=== PATIENT | male | born 1970 | race Caucasian/White ===

== ENCOUNTER 2024-09-18 04:52 | Inpatient (IN) | payer OTHER ==
[~2024-09-18] VITALS: Ht 172.7 cm; Wt 79.5 kg
[2024-09-18 05:54] LABS: CARBON DIOXIDE 17 mEq/L (21-32); CHLORIDE 109 mEq/L (98-107); POTASSIUM 3.6 mEq/L (3.5-5.1); SODIUM 139 mEq/L (136-145)
[2024-09-18 05:55] LABS: CALCIUM 8.9 mg/dL (8.7-10.4)
[2024-09-18 05:58] LABS: BASOPHILS % 0.6 % (0.0-2.0); EOSINOPHILS % 1.5 % (0.0-5.0); HEMATOCRIT. 44.2 % (42.0-52.0); HEMOGLOBIN. 15.2 g/dL (14.0-18.0); LYMPHOCYTES % 19.7 % (20.0-50.0); MEAN CORPUSCULAR HEMOGLOBIN 29.7 pg (28.0-32.0); MEAN CORPUSCULAR HGB CONC 34.5 g/dL (31.0-37.0); MEAN PLATELET VOLUME 7.8 fl (7.4-10.4); NEUTROPHILS % 72.2 % (40.0-76.0); PLATELET 192 x1000/uL (130-400); RED BLOOD CELL COUNT 5.14 mill/uL (4.7-6.1); RED CELL DISTRIBUTION WIDTH 15.3 % (11.6-14.6); WHITE BLOOD COUNT 10.4 x1000/uL (4.5-11.0)
[2024-09-18 05:59] LABS: CREATININE 1.7 mg/dL (0.6-1.3)
[2024-09-18 06:00] LABS: ETHANOL BLOOD 147 mg/dL (<10); GLUCOSE 114 mg/dL (70-105); UREA NITROGEN BLOOD 27 mg/dL (9-23)
[2024-09-18 06:04] LABS: TROPONIN I HIGH SENSITIVITY < 4 ng/L (3.0-53)
[2024-09-18 07:37] LABS: *AMPHETAMINES SCREEN URINE NEGATIVE (NEGATIVE); *BARBITURATES SCREEN URINE NEGATIVE (NEGATIVE); *BENZODIAZEPINES SCREEN URINE NEGATIVE (NEGATIVE)
[2024-09-18 07:38] LABS: *COCAINE SCREEN URINE NEGATIVE (NEGATIVE); CANNABINOID URINE SCREEN NEGATIVE (NEGATIVE); ECSTASY MDMA SCREEN URINE NEGATIVE (NEGATIVE); METHADONE URINE SCREEN NEGATIVE (NEGATIVE); OPIATES URINE SCREEN NEGATIVE (NEGATIVE); PHENCYCLIDINE URINE SCREEN NEGATIVE (NEGATIVE)
[2024-09-18] MEDS: DILTIAZEM HCL 30MG TABLET PO ONE (07:59)
[2024-09-18] MEDS: SODIUM CHLORIDE 0.9% 1,000 ML IV ONE (08:03)
[2024-09-18] MEDS: DILTIAZEM HCL 60MG TABLET PO ONE (08:04)
[2024-09-18] MEDS ORDERED: KETOROLAC 15MG/ML VIAL IV PRN (08:45)
[2024-09-18] MEDS ORDERED: GUAIFENESIN 200MG/10ML SUGAR FREE UDC PO PRN (08:45)
[2024-09-18] MEDS ORDERED: ACETAMINOPHEN 325MG TABLET PO PRN ×2 (08:45)
[2024-09-18] MEDS ORDERED: MAGNESIUM/ALUMINUM HYDROXIDE/SIMETHICONE 30ML UDC PO PRN (08:45)
[2024-09-18] MEDS ORDERED: ONDANSETRON HCL 4MG/2ML INJ IV PRN (08:45)
[2024-09-18] MEDS ORDERED: CLONIDINE 0.1MG TABLET PO PRN (08:45)
[2024-09-18] MEDS: LACTATED RINGERS IV ONE (08:45)
[2024-09-18] MEDS ORDERED: IPRATROPIUM/ALBUTEROL 0.5-3(2.5)MG/3ML NEB NEB PRN (08:45)
[2024-09-18] MEDS ORDERED: DOCUSATE SODIUM 100MG CAPSULE PO PRN (08:45)
[2024-09-18] MEDS ORDERED: NITROGLYCERIN 0.4MG TABLET SL SL PRN (08:45)
[2024-09-18] MEDS ORDERED: DILTIAZEM 125MG in DEXTROSE 5% WATER 125ML IV PRN (09:30)
[2024-09-18] MEDS ORDERED: DILTIAZEM HCL 125 MG in DEXT 5% WATER 100 ML IV SCH (09:30)
[2024-09-18] MEDS: APIXABAN 5 MG TABLET PO SCH (10:33)
[2024-09-18] MEDS: ASPIRIN 325MG EC TABLET PO SCH (10:33)
[2024-09-18] MEDS: PANTOPRAZOLE SODIUM 40 MG/VIAL IV SCH (10:33)
[2024-09-18] MEDS: MVI, ADULT NO.1 10 ML, FOLIC ACID 1 MG, THIAMINE HCL 100 MG in SODIUM CHLORIDE 0.9% 1,0... IV SCH (10:34)
[2024-09-18 10:50] LABS: IRON 80 ug/dL (65-175)
[2024-09-18 10:52] LABS: LDL CHOLESTEROL 88 mg/dL (5-100); TRIGLYCERIDE 265 mg/dL (0-150)
[2024-09-18 10:53] LABS: CHOLESTEROL 167 mg/dL (<200); HDL CHOLESTEROL 51 mg/dL (>55)
[2024-09-18 10:54] LABS: TOTAL IRON BINDING CAPACITY 214 ug/dl (250-425)
[2024-09-18 10:55] LABS: T4 FREE 1.07 ng/dL (0.89-1.76)
[2024-09-18 10:56] LABS: THYROID STIMULATING HORMONE 1.09 uIU/mL (0.55-4.78)
[2024-09-18] MEDS: CHLORDIAZEPOXIDE 25MG CAPSULE PO SCH (12:00)
[2024-09-18 12:04] LABS: VITAMIN B12 SERUM 272 pg/mL (211-911)
[2024-09-18 12:05] LABS: FOLIC ACID (FOLATE) SERUM 15.61 ng/mL (>5.38)
[2024-09-18] MEDS ORDERED: LORAZEPAM 2MG/ML INJ IV PRN (13:00)
[2024-09-18 14:00] VITALS: BP 134/80; PULSE 80; RESP 17; TEMP 36.6696; O2SAT 100
[2024-09-18 15:24] VITALS: BP 134/80; PULSE 81; RESP 19; TEMP 36.696
[2024-09-18 16:00] VITALS: BP 155/84; PULSE 74; RESP 20; TEMP 36.83628; O2SAT 99
[2024-09-18 16:41] LABS: CREATINE KINASE MB FRACTION 2.6 ng/mL (0.5-3.6)
[2024-09-18 16:45] LABS: CREATINE KINASE 226 IU/L (46-171)
[2024-09-18 17:03] LABS: TROPONIN I HIGH SENSITIVITY < 4 ng/L (3.0-53)
[2024-09-18 20:00] VITALS: BP 135/83; PULSE 79; RESP 18; TEMP 36.6696; O2SAT 98
[2024-09-18] MEDS ORDERED: ZOLPIDEM TARTRATE 5MG TABLET PO PRN (21:00)
[2024-09-18] MEDS: METOPROLOL TARTRATE 25MG TABLET PO SCH (21:59)
[2024-09-18] MEDS: CHLORDIAZEPOXIDE 10MG CAPSULE PO SCH (22:00)
[2024-09-18 23:18] LABS: CREATINE KINASE MB FRACTION 2.2 ng/mL (0.5-3.6)
[2024-09-18 23:19] LABS: CREATINE KINASE 204 IU/L (46-171)
[2024-09-18 23:45] LABS: TROPONIN I HIGH SENSITIVITY < 4 ng/L (3.0-53)
[2024-09-19] VITALS: BP 133/86; PULSE 58; RESP 18; TEMP 36.89184; O2SAT 98
[2024-09-19 04:00] VITALS: BP 141/54; PULSE 58; RESP 24; TEMP 36.6696; O2SAT 97
[2024-09-19 06:19] LABS: CHLORIDE 108 mEq/L (98-107); SODIUM 139 mEq/L (136-145)
[2024-09-19 06:21] LABS: CALCIUM 9.1 mg/dL (8.7-10.4); CARBON DIOXIDE 25 mEq/L (21-32)
[2024-09-19 06:26] LABS: CREATININE 0.8 mg/dL (0.6-1.3); GLUCOSE 101 mg/dL (70-105)
[2024-09-19 06:27] LABS: UREA NITROGEN BLOOD 14 mg/dL (9-23)
[2024-09-19 06:28] LABS: INR 0.9; PROTHROMBIN TIME 10.4 sec (9.6-11.0)
[2024-09-19 06:28] LABS: ALANINE AMINOTRANSFERASE 16 IU/L (10-49); ASPARTATE AMINOTRANSFERASE 22 IU/L (<34)
[2024-09-19 06:29] LABS: PHOSPHORUS 3.1 mg/dL (2.5-4.9); PROTEIN TOTAL 6.5 g/dL (6.0-8.3)
[2024-09-19 06:31] LABS: BASOPHILS % 0.4 % (0.0-2.0); EOSINOPHILS % 2.5 % (0.0-5.0); HEMATOCRIT. 45.2 % (42.0-52.0); HEMOGLOBIN. 14.4 g/dL (14.0-18.0); LYMPHOCYTES % 13.5 % (20.0-50.0); MEAN CORPUSCULAR HEMOGLOBIN 27.6 pg (28.0-32.0); MEAN CORPUSCULAR HGB CONC 31.9 g/dL (31.0-37.0); MEAN CORPUSCULAR VOLUME 86.7 fL (80.0-94.0); MONOCYTES % 6.2 % (2.0-8.0); NEUTROPHILS % 77.4 % (40.0-76.0); PLATELET 137 x1000/uL (130-400); RED BLOOD CELL COUNT 5.22 mill/uL (4.7-6.1); WHITE BLOOD COUNT 7.3 x1000/uL (4.5-11.0)
[2024-09-19 08:00] VITALS: BP 141/91; PULSE 77; RESP 22; TEMP 36.6696; O2SAT 98
[2024-09-19] MEDS: MULTIVITAMINS,THER W-MINERALS TABLET PO SCH (09:47)
[2024-09-19] MEDS: THIAMINE HCL 100MG TABLET PO SCH (09:47)
[2024-09-19] MEDS: FOLIC ACID 1MG TABLET PO SCH (09:48)
[2024-09-19 12:00] VITALS: BP 139/98; PULSE 69; RESP 11; TEMP 36.83628; O2SAT 98
[2024-09-19] MEDS: CHLORDIAZEPOXIDE 5 MG CAPSULE PO SCH (13:49)
[2024-09-19 16:09] VITALS: BP 132/89; PULSE 80; RESP 21; TEMP 36.72516; O2SAT 98
[2024-09-19 20:00] VITALS: BP 129/85; PULSE 73; RESP 16; TEMP 36.72516; O2SAT 99
[2024-09-20] VITALS: BP 113/77; PULSE 57; RESP 14; TEMP 36.44736; O2SAT 97
[2024-09-20 04:49] VITALS: BP 131/95; PULSE 67; RESP 15; TEMP 36.44736; O2SAT 95
[2024-09-20 07:25] LABS: BASOPHILS % 0.6 % (0.0-2.0); EOSINOPHILS % 3.1 % (0.0-5.0); HEMOGLOBIN. 14.2 g/dL (14.0-18.0); LYMPHOCYTES % 18.4 % (20.0-50.0); MEAN CORPUSCULAR HEMOGLOBIN 27.8 pg (28.0-32.0); MEAN CORPUSCULAR HGB CONC 32.4 g/dL (31.0-37.0); MEAN CORPUSCULAR VOLUME 85.9 fL (80.0-94.0); MONOCYTES % 7.1 % (2.0-8.0); NEUTROPHILS % 70.8 % (40.0-76.0); PLATELET 131 x1000/uL (130-400); RED BLOOD CELL COUNT 5.12 mill/uL (4.7-6.1); RED CELL DISTRIBUTION WIDTH 14.8 % (11.6-14.6); WHITE BLOOD COUNT 4.5 x1000/uL (4.5-11.0)
[2024-09-20] MEDS ORDERED: METO25TA6 PO (07:29)
[2024-09-20] MEDS ORDERED: MULT-1146 MT (07:29)
[2024-09-20] MEDS ORDERED: THIA100T72 PO (07:29)
[2024-09-20] MEDS ORDERED: ASPI-1406 MT (07:29)
[2024-09-20] MEDS ORDERED: FOLI-43 PO (07:29)
[2024-09-20] MEDS ORDERED: APIX5TAB PO (07:29)
[2024-09-20 07:42] LABS: CALCIUM 9.3 mg/dL (8.7-10.4); CARBON DIOXIDE 27 mEq/L (21-32); CHLORIDE 106 mEq/L (98-107); POTASSIUM 3.8 mEq/L (3.5-5.1); SODIUM 140 mEq/L (136-145)
[2024-09-20 07:45] LABS: CREATININE 0.8 mg/dL (0.6-1.3)
[2024-09-20 07:46] LABS: GLUCOSE 111 mg/dL (70-105)
[2024-09-20 07:48] LABS: UREA NITROGEN BLOOD 14 mg/dL (9-23)
[2024-09-20 07:50] LABS: PHOSPHORUS 3.4 mg/dL (2.5-4.9)
[2024-09-20 08:00] VITALS: BP 129/75; PULSE 75; RESP 18; TEMP 36.55848; O2SAT 96
[2024-09-20 08:04] VITALS: BP 129/75; PULSE 75; TEMP 97.8; O2SAT 96
[2024-09-20 12:00] VITALS: BP 135/85; PULSE 89; RESP 20; TEMP 36.6696; TEMP 36.66960; O2SAT 98
== END 2024-09-20 14:43 | disposition home or self-care (01) | DRG 201 ==
LOC: ER 04:52 → 3WST 07:48 → EDBEDREQ 07:53 → EDBEDREQTM 07:53
PROVIDERS: ADMIT Internal Medicine; ATTEND Internal Medicine
DX: I48.0 Paroxysmal atrial fibrillation (principal); G92.8 Other toxic encephalopathy; N17.9 Acute kidney failure, unspecified; E87.20 Acidosis, unspecified; I10 Essential (primary) hypertension; R25.3 Fasciculation; F14.90 Cocaine use, unspecified, uncomplicated; F10.229 Alcohol dependence with intoxication, unspecified; Z79.01 Long term (current) use of anticoagulants; Z79.82 Long term (current) use of aspirin; Z79.899 Other long term (current) drug therapy; Y90.6 Blood alcohol level of 120-199 mg/100 ml
CPT/HCPCS: 36415; 71045; 80048; 80053; 80061; 80305; 80320; 82550; 82553; 82607; 82746; 83036; 83540; 83550; 83605; 83735; 83880; 84100; 84145; 84439; 84443; 84484; 85025; 85379; 93005; 93306; 93970; 99285; J2470; J3411; J3490; J7030; J7060; G0480